=== PATIENT | male | born 1995 | race Hispanic/Latino ===

== ENCOUNTER 2020-01-22 08:06 | Emergency (ER) | payer OTHER ==
[~2020-01-22] VITALS: Ht 172.7 cm; Wt 84.1 kg
--- NOTE | 2020-01-22 08:22 | Emergency Department Note ---
History of Present Illnes History of Present Illness History of Present Illness This is a 24 year old male [employer], played soccer yesterday, someone stepped on his right big toe causing injures, bleeding. He went to work could not use his boot as it hurts bad . Arrival Mode: Car Ehs Engineer Required: No Onset (how long ago): day(s) Radiation: Reports proximal Onset quality: sudden Duration (how long): day(s) Chronicity: new Relieving factors: none Exacerbating factors: none Associated symptoms: Reports other Treatments prior to arrival: none Past Medical/Family History Physician Review I have reviewed the patient's past medical and family history. Any updates have been documented here. Past Medical History Recent Fever: No Clinical Suspicion of Infectio: No New/Unexplained Change in Ment: No Past Medical History: None Past Surgical History: None Social History Smoking Cessation: Unknown if ever smoked Alcohol Use: None Any Illegal Drug Use: No Physically hurt or threatened: No Family History Family history of heart diseas: No Other Any Pre-Existing Lines (PICC,: No Review of Systems Review of Systems Constitutional: Reports no symptoms EENTM: Reports no symptoms Cardiovascular: Reports no symptoms Respiratory: Reports no symptoms Gastrointestinal: Reports no symptoms Genitourinary: Reports no symptoms Musculoskeletal: Reports no symptoms, Reports other (right big toe pain) Integumentary: Reports no symptoms Neurological: Reports no symptoms Psychological: Reports no symptoms Endocrine: Reports no symptoms Hematological/Lymphatic: Reports no symptoms Physical Exam Related Data Allergies: Coded Allergies: No Known Allergies (Unverified , 01/22/20) Vital signs reviewed: Yes Physical Exam CONSTITUTIONAL Constitutional: Present well-developed, Present well-nourished HENT HENT: Present normocephalic, Present atraumatic, Present oropharynx clear/moist, Present nose normal HENT L/R: Present left ext ear normal, Present right ext ear normal EYES Eyes: Reports PERRL, Reports conjunctivae normal NECK Neck: Present ROM normal PULMONARY Pulmonary: Present effort normal, Present breath sounds normal CARDIOVASCULAR Cardiovascular: Present regular rhythm, Present heart sounds normal, Present capillary refill normal, Present normal rate GASTROINTESTINAL Abdominal: Present soft, Present nontender, Present bowel sounds normal GENITOURINARY Genitourinary: Present exam deferred SKIN Skin: Present warm, Present dry MUSCULOSKELETAL Musculoskeletal: Present ROM normal, Present deformity, Present swelling, Present other (right toe tender, ingrown toenail, no, some trace blood, not infected) NEUROLOGICAL Neurological: Present alert, Present oriented x 3, Present no gross motor or sensory deficits PSYCHOLOGICAL Psychological: Present mood/affect normal, Present judgement normal Results Imaging Imaging results reviewed: Yes Assessment & Plan Medical Decision Making MDM trauma big toe Assessment & Plan Final Impression: (1) Pain, acute due to trauma (2) Sprain of toe, great, right TAMEKA THOMAS MD Jan 22, 2020 08:22
--- NOTE | 2020-01-22 08:44 | Diagnostic Imaging Report ---
EXAMINATION: FOOT 3 VIEW RT - HOPD INDICATION: Trauma COMPARISON: None FINDINGS: No acute fracture or dislocation. Alignment is anatomic. No substantial degenerative change. Mild great toe soft tissue swelling. IMPRESSION: No acute osseous injury. Signed by: Velasquez Mayorga MD on 01/22/2020 8:41 AM
== END 2020-01-22 09:05 | disposition home or self-care (01) ==
LOC: FSED 08:19
DX: S93.501A Unspecified sprain of right great toe, initial encounter (principal); W50.0XXA Accidental hit or strike by another person, initial encounter; Y93.66 Activity, soccer; Y92.322 Soccer field as the place of occurrence of the external cause
CPT/HCPCS: 99283